=== PATIENT | female | born 1945 ===

== ENCOUNTER → 2018-05-08 | Outpatient (CLI) | payer OTHER | END | disposition home or self-care (01) | LOC: NUCLEAR 08:38 | DX: E05.90 Thyrotoxicosis, unspecified without thyrotoxic crisis or storm (principal) | CPT/HCPCS: 78012; A9531 ==

== ENCOUNTER 2018-05-09 08:44 | Outpatient (CLI) | payer OTHER | END 2018-05-09 09:11 | disposition home or self-care (01) | LOC: NUCLEAR 08:44 | DX: E05.90 Thyrotoxicosis, unspecified without thyrotoxic crisis or storm (principal) | CPT/HCPCS: 78013; A9512 ==

== ENCOUNTER 2018-12-18 08:30 | Outpatient (CLI) | payer OTHER | END 2018-12-18 09:00 | disposition home or self-care (01) | LOC: NUCLEAR 08:30 | DX: N25.81 Secondary hyperparathyroidism of renal origin (principal) | CPT/HCPCS: 78072; A9500 ==

== ENCOUNTER → 2020-11-27 | Outpatient (CLI) | payer OTHER | END | disposition home or self-care (01) | LOC: SONOGRAMA 08:31 | PROVIDERS: ATTEND Pathology Anatomic Pathology & Clinical Pathology | DX: D34 Benign neoplasm of thyroid gland (principal); E04.8 Other specified nontoxic goiter ==